=== PATIENT | female | born 1965 | race Two or more races ===

== ENCOUNTER 2021-01-03 20:24 | Emergency (ER) | payer SELFPAY ==
[~2021-01-03] VITALS: Ht 160 cm; Wt 61.4 kg
--- NOTE | 2021-01-03 23:12 | PHYS DOC ---
General Adult EDM: Chief Complaint: HIP PAIN HPI: HPI: Patient is a 55 year old here with report of right hip and buttocks pain, the pain radiates down her posterior thigh. She denies any specific trauma or injury to this area. She reports that about 1 week ago she almost fell while in the shower and she grabbed a hold of a handle to prevent her from falling, and since that time she has had progressive right-sided hip and low back and thigh pain. She denies numbness tingling or motor weakness. She denies abdominal pain. She denies urinary symptoms. She denies bowel or bladder incontinence. She denies perineal numbness or tingling. She saw her PCP this week, on Wednesday, and she was prescribed gabapentin and Flexeril. She reports is not helping. She has not taken any [id number] medications to assist with pain control. She has not gone back to her doctor to discuss any further treatment. She has not undergone any imaging studies. Review of Systems: Review of Systems: Constitutional: Denies fever or chills. [] HENT: Denies nasal congestion or sore throat. [] Respiratory: Denies cough or shortness of breath. [] Cardiovascular: Denies chest pain or edema. [] GI: Denies abdominal pain, nausea, vomiting, bloody stools or diarrhea. Denies stool incontinence. : Denies dysuria. Has urinary incontinence. Musculoskeletal: Reports right low back pain, right hip and buttocks pain. Denies joint pain or swelling. Integument: Denies rash. [] Neurologic: Denies headache, focal weakness or sensory changes. [] Endocrine: Denies polyuria or polydipsia. [] Lymphatic: Denies swollen glands. [] Psychiatric: Denies depression or anxiety. [] Heart Score: C/O Chest Pain: No Risk Factors: Risk Factors: DM, Current or recent (<one month) smoker, HTN, HLP, family history of CAD, obesity. Risk Scores: Score 0 - 3: 2.5% MACE over next 6 weeks - Discharge Home Score 4 - 6: 20.3% MACE over next 6 weeks - Admit for Clinical Observation Score 7 - 10: 72.7% MACE over next 6 weeks - Early Invasive Strategies Allergies: Allergies: Allergies Coded Allergies Type Severity Reaction Last Updated Verified No Known Drug Allergies 01/03/21 No Physical Exam: PE: Constitutional: Well developed, well nourished, no acute distress, non-toxic appearance. [] HENT: Normocephalic, atraumatic Eyes: Sclera are clear and anicteric Neck: Normal range of motion, no tenderness, supple, trachea midline. Cardiovascular:Heart rate regular rhythm, +2 radial and dorsalis pedis pulses bilaterally. Lungs & Thorax: Bilateral breath sounds clear to auscultation [] Abdomen: Bowel sounds normal, soft, no tenderness, no masses, no pulsatile masses. No CVA tenderness. Skin: Warm, dry, no erythema, no rash. [] Back: No midline tenderness or step-offs. Minimal tenderness of the right PSIS and right lower lumbar paraspinal muscle areas. No midline tenderness or step- offs. Extremities: No limb deformity. Pelvis is stable. No calf tenderness. Bilateral knees are nontender without effusion warmth or erythema. Palpation of the right lateral buttocks and piriformis and right lateral hip areas reproduces pain. No tenderness with passive or active range of motion of the right hip or thigh. No palpable crepitus or step-offs. No hip joint warmth or erythema. Neurologic: Alert and oriented X 3, normal motor function, normal sensory function, no focal deficits noted. DTRs 2 out of 4 bilateral lower extremities. 5 out of 5 motor strength all four extremities. Psychologic: Affect normal, judgement normal, mood normal. [] EKG: EKG: [] Radiology/Procedures: Radiology/Procedures: IMAGING REPORT Signed PATIENT: CHRISTIN CLEMONS ACCOUNT: [id number] : 1965 LOCATION: ER AGE: 55 SEX: F EXAM STATUS: REG ER ORD. PHYSICIAN: BRENT POP DO REASON: pain PROCEDURE: HIP RIGHT 1 VIEW WITH PELVIS Examination: 2 Views of the lumbar spine and 2 views of the right hip HISTORY: History of back pain, hip pain COMPARISON: None available. FINDINGS: The lumbar vertebral body heights are maintained. The facets are well aligned. The bilateral femoral heads within the acetabulum. Mild joint space loss bilateral hip joints likely degenerative changes. There is no acute fracture or dislocation identified. 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 Electronically signed by: Emre Sanders MD (01/04/2021 12:51 AM) [id number] DICTATED and SIGNED BY: EMRE SANDERS MD DATE: 01/04/21 [id number] 0 Course & Med Decision Making: Course & Med Decision Making Pertinent Labs and Imaging studies reviewed. (See chart for details) IM Toradol and p.o. [place] given for pain. I discussed the findings, differential diagnosis and plan of care with the patient. I did explain that she seems to have symptoms more consistent with sciatica or piriformis syndrome. I recommend she follow-up with her primary care physician for further evaluation and treatment. I did explain that she may require further outpatient, nonemergent imaging, such as MRI, if symptoms persist. She feels much better, she is comfortable with plan of care and comfortable with plan for discharge home. Return precautions are given. Dragon Disclaimer: Dragon Disclaimer: This electronic medical record was generated, in whole or in part, using a voice recognition dictation system. Departure Departure Impression: Primary Impression: Right sciatic nerve pain Additional Impression: Lumbar radiculopathy, acute Disposition: 01 HOME / SELF CARE / HOMELESS Condition: STABLE Referrals: UNKNOWN PCP NAME (PCP) Patient Instructions: Lumbosacral Radiculopathy, Sciatica Additional Instructions: Take the medication as needed/as directed. You may alternate ice and heat. Return for new injury or trauma, if you develop motor weakness or paralysis, if you develop severe abdominal pain, fever 100.4 or higher, if you lose control of your bowel or bladder function or for any other concerns. Please contact your primary care physician for follow-up. You may require outpatient MRI if symptoms persist. Scripts Prednisone (PREDNISONE) 50 Mg Tablet 1 TAB PO DAILY for 5 Days, #5 TAB Prov: BRENT POP DO 01/04/21 Hydrocodone Bit/Acetaminophen (HYDROCODONE-APAP 5-325 ) 1 Tab Tablet 1 TAB PO PRN Q6HRS PRN for PAIN, #15 TAB 0 Refills Prov: BRENT POP DO 01/04/21 BRENT POP DO Jan 03, 2021 23:12
[2021-01-03] MEDS ORDERED: KETOROLAC 60 MG/2 ML VIAL. IM ONE (23:30)
[2021-01-03] MEDS ORDERED: HYDROcodone/APAP 5/325MG 1 TAB TABLET PO ONE (23:30)
--- NOTE | 2021-01-04 00:53 | RAD ---
Examination: 2 Views of the lumbar spine and 2 views of the right hip HISTORY: History of back pain, hip pain COMPARISON: None available. FINDINGS: The lumbar vertebral body heights are maintained. The facets are well aligned. The bilateral femoral heads within the acetabulum. Mild joint space loss bilateral hip joints likely degenerative changes. There is no acute fracture or dislocation identified. 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 Electronically signed by: Emre Sanders MD (01/04/2021 12:51 AM) [id number]
[2021-01-04] MEDS ORDERED: PRED50TA PO (01:25)
[2021-01-04] MEDS ORDERED: HYDR-2761 PO (01:25)
[2021-01-04 01:45] VITALS: BP 138/63
== END 2021-01-04 02:18 | disposition home or self-care (01) ==
LOC: ER 20:24
DX: M54.41 Lumbago with sciatica, right side (principal); M54.16 Radiculopathy, lumbar region; M25.551 Pain in right hip
CPT/HCPCS: 72100; 73501; 96372; 99285; J1885